=== PATIENT | female | born 1965 | race African-American/Black ===

== ENCOUNTER 2017-03-29 06:27 | Emergency (ER) | payer BC | END 2017-03-29 08:12 | disposition home or self-care (01) | LOC: ERS 06:27 | DX: J11.1 Influenza due to unidentified influenza virus with other respiratory manifestations (principal); E78.5 Hyperlipidemia, unspecified; I10 Essential (primary) hypertension; F17.210 Nicotine dependence, cigarettes, uncomplicated | CPT/HCPCS: 99406 ==

== ENCOUNTER 2019-03-25 13:14 | Outpatient (CLI) | payer BC ==
[2019-03-25 15:52] LABS: Anion Gap 14 mmol/L (10-20); BUN (Urea Nitrogen) 11 mg/dL (9.8-20.1); Calc. Creatinine Clearance 0 mL/min (70-130); Calcium 9.8 mg/dL (7.8-10.44); Carbon Dioxide 26 mmol/L (22-29); Chloride 100 mmol/L (98-107); Estimated GFR-MDRD 87; Glucose 87 mg/dL (70-105); Potassium 3.2 mmol/L (3.5-5.1); Sodium 137 mmol/L (136-145)
== END 2019-03-25 13:15 | disposition home or self-care (01) ==
LOC: LABBT 13:14
PROVIDERS: ATTEND Obstetrics & Gynecology
DX: Z01.818 Encounter for other preprocedural examination (principal)
CPT/HCPCS: 80048; 93005; 93010

== ENCOUNTER 2019-03-25 13:15 | Inpatient (IN) | payer BC, OTHER ==
[2019-03-25 13:42] VITALS: BMI 40.6
[2019-03-25 15:31] LABS: Hemoglobin 13.5 g/dL (12.0-16.0); Mean Corpuscular Hemoglobin 28.7 pg (27.0-31.0); Mean Platelet Volume 7.2 fL (7.4-10.4); Platelet Count 339 thou/uL (130-400); RBC Distribution Width 12.8 % (11.5-14.5); Red Blood Cell (RBC) Count 4.69 mill/uL (4.20-5.40); White Blood Cell (WBC) Count 6.2 thou/uL (4.8-10.8)
[2019-03-25 15:52] LABS: BHCG - Serum Negative (NEGATIVE); Pregs Control Background? CLEAR/WHITE (CLR/WHITE); Pregs Control Bar Appear? YES (CONTROL BAR)
--- NOTE | 2019-03-26 10:55 | HP ---
She is scheduled for surgery on 03/29/2019. HISTORY OF PRESENT ILLNESS: Ms. Jordan is a 53-year-old female, G3, P2, A1, with 2 spontaneous vaginal deliveries and BTL in the past, has been referred by Dr. Radha Chamorro for symptomatic 20-week uterine fibroids. She reports very heavy monthly menses, where she saturates a maxi pad in 30 minutes to an hour at times. She says this has also had documented anemia from the menorrhagia in the past with a hemoglobin of 8. She is taking iron therapy and has had improvement in her hemoglobin to 12. She has heavy flow days that compromised her work and is having to change the pads frequently, etc. She has used non-steroidals and Lysteda for the flow, but it would not much help. She reports missing a day, a month from her work due to the heavy flow. 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 PAST MEDICAL HISTORY: She has chronic hypertension. PAST SURGICAL HISTORY: Otherwise, she has had a past surgical history of tubal ligation. OBSTETRIC HISTORY: She is up to date with normal Pap smear testing in 05/2018. ALLERGIES: SHE HAS NO KNOWN DRUG ALLERGIES. SOCIAL HISTORY: Nonsmoker. No excessive alcohol use. PHYSICAL EXAMINATION: VITAL SIGNS: On exam, her blood pressure is 140/84. Height 5 feet 6 inches, weight 245 with BMI of 39. Respiratory rate 18, O2 saturation on room air is 99%, and pulse is 82. HEENT: Within normal limits. CHEST: Clear to auscultation. HEART: Regular rate and rhythm. S1 and S2, heart sounds. No murmurs, rubs, or gallops. ABDOMEN: Soft and nondistended. She has a palpable fundal uterine fibroid mass at the umbilicus, consistent with 20-week uterine size. The fundus appears mobile on exam. PELVIC: Vulva had no lesions. Vagina had no lesions. Cervix was pulled up high in the vaginal vault, but there was no evidence of any lesions on the cervix. As noted, the uterus was 20 weeks size, appears to be mobile from sidewall to sidewall on exam. ASSESSMENT: This is a 53-year-old female with large 20-week uterine fibroids. There were symptoms of menorrhagia with documented anemia in the past and pelvic discomfort and dysmenorrhea. She desired definitive surgical therapy. PLAN: For robotic total laparoscopic hysterectomy with bilateral salpingo-oophorectomy with ExCITE procedure versus a ISABEL-BSO. Risks and benefits of procedure, I have discussed in detail. She is set for surgery on 03/29. Job ID: [id number]
[2019-03-29] MEDS ORDERED: Famotidine/PF 20 mg/2ml Vial ONE (06:23)
[2019-03-29] MEDS ORDERED: CeleCOXIB 100 MG CAP ONE (06:23)
[2019-03-29] MEDS ORDERED: Gabapentin 300 MG CAP ONE (06:23)
[2019-03-29] MEDS ORDERED: Fentanyl 100 MCG/2 ML VIAL ONE ×2 (06:44→12:41)
[2019-03-29] MEDS ORDERED: HYDROmorphone 0.5 MG/0.5 ML SYRINGE ONE (06:45)
[2019-03-29] MEDS ORDERED: Midazolam HCl 2 mg/2 ml Vial ONE (07:11)
[2019-03-29] MEDS ORDERED: Bupivacaine PF 0.5% 30 ML VIAL ONE (07:53)
[2019-03-29] MEDS ORDERED: Lidocaine 1% PF 5 ML VIAL ONE (09:36)
[2019-03-29] MEDS ORDERED: Glycopyrrolate 0.2 MG/ML 5 ML SYRINGE ONE (09:36)
[2019-03-29] MEDS ORDERED: Ondansetron PF 4 MG/2 ML Vial ONE (09:36)
[2019-03-29] MEDS ORDERED: ePHEDrine/0.9% NaCl/PF SYRINGE 50 mg/10 ml ONE (09:36)
[2019-03-29] MEDS ORDERED: Rocuronium Bromide 10 MG/ML (10ML VIAL) ONE (09:36)
[2019-03-29] MEDS ORDERED: Dexamethasone 20 MG/5 ML VIAL ONE (09:36)
[2019-03-29] MEDS ORDERED: PROPOFOL 200 MG/20 ML VIAL ONE (09:36)
[2019-03-29] MEDS ORDERED: Morphine 4 MG/ML VIAL SLOW IVP PRN (14:04)
[2019-03-29] MEDS ORDERED: traMADol HCl 50 MG TAB PO PRN (14:04)
[2019-03-29] MEDS ORDERED: Ketorolac Tromethamine 30 MG/ML VIAL IVP SCH (14:04)
[2019-03-29] MEDS ORDERED: Estradiol 0.05mg/24 Hour Patch (Weekly) TD SCH (14:04)
[2019-03-29] MEDS ORDERED: Ondansetron PF 4 MG/2 ML Vial IVP PRN (14:04)
[2019-03-29] MEDS ORDERED: Bisacodyl 10 MG SUPP PR PRN (14:04)
[2019-03-29] MEDS ORDERED: Promethazine HCl 25 MG/ML VIAL IM PRN (14:04)
[2019-03-29] MEDS ORDERED: Acetaminophen 325 MG TAB PO PRN (14:04)
[2019-03-29] MEDS ORDERED: diphenhydrAMINE 25 MG CAP PO PRN (14:04)
--- NOTE | 2019-03-29 14:12 | OP ---
DATE OF PROCEDURE: 03/29/2019 PREOPERATIVE DIAGNOSES: 1. A 53-year-old female with large 20-week size uterine fibroids. 2. Menorrhagia and pelvic pain. POSTOPERATIVE DIAGNOSES: 1. A 53-year-old female with large 20-week size uterine fibroids. 2. Menorrhagia and pelvic pain. PROCEDURES PERFORMED: Robotic total laparoscopic hysterectomy with bilateral salpingo-oophorectomy and removal of tissue via the ExCITE procedure. URBAN GARDENING SPECIALIST SURGEON: Brianne Montenegro MD ANESTHESIA: General endotracheal. ESTIMATED BLOOD LOSS: 150 mL. COMPLICATIONS: None. COUNTS: Correct x2. ANTIBIOTICS: 2 g Ancef on-call to the OR. FINDINGS: 1. Very large uterus filling pelvis with multiple large fibroids noted. 2. Normal bilateral fallopian tubes and ovaries. 3. Clear urine present in Zhang catheter and bladder was watertight to fluid distention postprocedure. 4. Bilateral ureteral peristalsis visualized postprocedure. DISPOSITION: To recovery room, stable. DESCRIPTION OF PROCEDURE: The patient previously received informed consent in regard to surgery. She was taken back to the operating room, where she received a general endotracheal anesthetic agent without complications. She was placed in dorsal lithotomy position with the use of Juvenal stirrups and prepped and draped in usual sterile fashion. Zhang catheter was placed at this time. A side-arm speculum placed in the vagina. Anterior lip of the cervix was grasped with a single-tooth tenaculum. The uterus sounded to 14 cm. A size 12-cm DRE uterine manipulator was placed with a 4.0-cm cervical cup. Tenaculum and speculum were removed. Attention was then turned to the abdomen, where approximately a 2.5 cm supraumbilical incision was made above the umbilicus. This was carried down the fascia and then the Veress needle was entered into the peritoneal cavity. The abdomen was insufflated with the patient's pressure of 15 approximately 4.5 L of carbon dioxide gas. The Veress needle was removed and a size 12 mm trocar was placed through the incision. The robotic trocar was introduced through the trocar sleeve confirming proper entry. Additional bilateral lower quadrant 8-mm robotic trocars were placed under laparoscopic guidance along with an 11-mm right upper quadrant life science research assistant port. We then proceeded to place the small GelPOINT incision system in the supraumbilical incision. A fascial defect had been extended to 2.5 cm. Once the GelPOINT was placed, the 12-mm trocar was placed through the GelPOINT and then this laparoscope was introduced into the abdomen. The patient was placed into Trendelenburg position and the robot was docked in the usual fashion. I then proceeded to carry out the surgery from the operative console while my assistants remained at the bedside. The uterus was noted as large. It was moved from side to side and was able to identify the left infundibulopelvic ligament. This was coagulated with bipolar fenestrated cautery and transected with monopolar scissors. Once we deviated the uterus with assistance from my assistants, we were able to deviate the uterus over to away from the sidewall and then continued coagulation of broad ligament until the left round ligament was reached. It was coagulated and transected and the anterior leaf of the broad ligament was entered. Peritoneum was dissected medially and laterally, developing the planes and skeletonizing the left uterine vessels. We then created the vesicouterine peritoneum, where we reflected the bladder flap in a layering technique. This was then carried on the right side of the uterus. Again, the right IP ligament was identified, coagulated, and transected. Serial coagulation of broad ligament hugging close to the uterus was carried out until the right round ligament was reached. It was coagulated and transected again the anterior leaf of the broad ligament was entered and the vesicouterine peritoneum was dissected in a layering technique and intermittently we distended the bladder to ascertain its position due to the redundancy of the peritoneum in this area. The bladder remained intact, watertight and continued dissecting this as we had a better visualization on this side and we were able to dissect the vesicouterine peritoneum down and the cervical tissue was noted. The bladder was brought down past the cervical vaginal angles. The right uterine vessels again were skeletonized and coagulated in the internal cervical os region. Once we had access to the anterior clearance of the bladder, then further dissection of the left uterine vessels and skeletonization were carried out and these again were coagulated in the internal cervical os region with the bipolar fenestrated cautery. Once blood supply to the uterine vessels had been secured in the internal cervical os region, then we proceeded to carry out the anterior colpotomy. This started from the 12 o'clock to 3 o'clock and 12 o'clock to 9 o'clock position. Coagulation of the vessels at 3 o'clock and 9 o'clock position were again carried out to confirm hemostasis. The bulky nature of the uterus made it more difficult to access the posterior colpotomy sites. We deviated the uterus over the each sidewall. Then, I switched out to a 30-degree scope, which enabled the better angle of visualization to complete the posterior colpotomy and approaching this from the side. We continued to cut along the cervical cup and coagulated as indicated with the bipolar fenestrated cautery. We switched out the sides with the monopolar scissors on the right and the left side, which made a better access to the angle needed to complete the colpotomy. Once the colpotomy was completed, the uterus was taken off the OnKure uterine manipulator and delivered in the upper abdomen. The needle skip load driver was then switched out the monopolar scissors and then we closed the vaginal cuff starting at the right angle to the left angle back to the right angle with a Stratafix suture. Hemostasis was confirmed. Pelvis again was irrigated and suctioned. Ir any areas of oozing were made hemostatic with bipolar fenestrated cautery and Tisseel was also placed. The robot scope was undocked and the accordion folded Aces bag was placed in the abdomen. Then, we redocked the camera scope. Once we brought the bag down in the pelvis, then the stay sutures were cut, opening the bag in the pelvis. Then with my life science research assistant, we were able to place the large uterine specimen in the bag and then the pull string was closed to secure it. Then, the drawstring was then grasped by my life science research assistant through the GelPOINT with the [place] and then brought up through the GelPOINT. The robot was then undocked. We then delivered the Aces bag with the uterus inside in the ovaries and brought this up through the 2.5 cm fascial defect supraumbilical through the GelPOINT. The GelPOINT retractor was then placed inside the Aces bag to protect the Aces bag during the morcellation process. The specimen was then morcellated in usual technique with the C incision continually grabbing the tissue with Marybeth thyroid clamps, C cutting it and removing it. The specimen was roughly 1200 g weight after completion of removal of the morcellation. The Aces bag was intact. The GelPOINT retractor was removed. The fascial defect was then closed with running 0 Vicryl suture in the supraumbilical region with good approximation of fascia confirmed. The subcutaneous tissue was irrigated. It was closed with 4-0 subcuticular stitches on all the trocar sites along with Dermabond. The patient's sponge stick was checked of the vagina. Hemostasis of the vaginal vault was confirmed. Clear urine was draining from the Zhang catheter. The patient was awakened and transferred to the recovery room in stable condition. Job ID: [id number]
[2019-03-29] MEDS ORDERED: Ketorolac Tromethamine 30 MG/ML VIAL ONE (14:48)
[2019-03-29] MEDS: Lactated Ringer's 1,000 ML IV SCH ×2 (14:54→16:39)
[2019-03-29] MEDS ORDERED: Sodium Chloride 0.9% 10 ML ONE (20:37)
[2019-03-29] MEDS: traMADol HCl 50 MG TAB PO PRN (20:38)
[2019-03-29] MEDS: Ketorolac Tromethamine 30 MG/ML VIAL IVP SCH (20:43)
[2019-03-29] MEDS ORDERED: Atorvastatin Calcium 40 MG TAB PO SCH (21:00)
[2019-03-30] MEDS: Ketorolac Tromethamine 30 MG/ML VIAL IVP SCH ×2 (03:19→09:04)
[2019-03-30] MEDS: traMADol HCl 50 MG TAB PO PRN (05:03)
[2019-03-30 06:11] LABS: Hemoglobin 8.2 g/dL (12.0-16.0); Mean Corpuscular HGB CONC 33.3 g/dL (32.0-36.0); Mean Corpuscular Hemoglobin 28.9 pg (27.0-31.0); Mean Corpuscular Volume 86.8 fL (78.0-98.0); Mean Platelet Volume 7.2 fL (7.4-10.4); Platelet Count 260 thou/uL (130-400); RBC Distribution Width 12.9 % (11.5-14.5); Red Blood Cell (RBC) Count 2.84 mill/uL (4.20-5.40); White Blood Cell (WBC) Count 11.6 thou/uL (4.8-10.8)
[2019-03-30] MEDS: Lactated Ringer's 1,000 ML IV SCH (06:53)
--- NOTE | 2019-03-30 08:18 | PDOC.EVN ---
Event Note - Event Note Event Note: Tolerating diet. Ambulating. Voiding. Good pain control. O:122/52 P85 u/o >1000ml Abdomen soft/non distended , trochar sites clean and dry. HCT 24.6% A/P Post op day1 from robotic tlh/bso with excite for large uterine fibroids...Doing well. Anticipate discharge today.
[2019-03-30 08:28] VITALS: BP 116/57; TEMP 98.1
[2019-03-30] MEDS ORDERED: Hydrochlorothiazide 25 MG TAB PO SCH (09:00)
[2019-03-30] MEDS ORDERED: Amlodipine 5 MG TAB PO SCH (09:00)
[2019-03-30] MEDS ORDERED: Losartan 25 MG TAB PO SCH (09:00)
[2019-03-30] MEDS ORDERED: Nicotine 14 MG PATCH TOP SCH (09:00)
--- NOTE | 2019-03-31 04:33 | DIS ---
DATE OF ADMISSION: 03/29/2019 DATE OF DISCHARGE: 03/30/2019 DIAGNOSES: 1. Large uterine fibroids. 2. History of menorrhagia due to uterine fibroids and pelvic pain. PROCEDURES PERFORMED: Robotic total laparoscopic hysterectomy with bilateral salpingo-oophorectomy and removal of specimen via the ExCITE procedure. SUMMARY OF HOSPITAL COURSE: Ms. Jordan is a 53-year-old female, who had large 22-week size uterine fibroids with approximate weight of 1300 g removed via robotic total laparoscopic hysterectomy and via BSO with ExCITE on 03/29. Postoperatively, the patient has done well. Vital signs remained stable. She had a postoperative blood-loss anemia and hematocrit 24.6%, but it was asymptomatic with normal vital signs and no orthostatic symptoms. She was ambulating, voiding, and tolerating her diet the evening of postop day 0. She was discharged in the morning of postop day #1 with discharge medications of tramadol 50 mg q.6 hours p.r.n. pain, [id number] ibuprofen as directed, and instructed to restart her daily iron therapy for next month. Pathology is pending at time of this dictation, and she has a followup in 2 and 6 weeks postop. Job ID: [id number]
[2019-04-03] MEDS ORDERED: Ibuprofen 800 MG TAB PO SCH (21:00)
== END 2019-03-30 11:15 | disposition home or self-care (01) | DRG 743 ==
LOC: SURG A 03-29 05:33 → 3SE 03-29 13:58
PROVIDERS: ADMIT Obstetrics & Gynecology; ATTEND Obstetrics & Gynecology
PROC: 0UT94ZZ Resection of Uterus, Percutaneous Endoscopic Approach (ICD-10-PCS; principal; 2019-03-29)
PROC: 0UT74ZZ Resection of Bilateral Fallopian Tubes, Percutaneous Endoscopic Approach (ICD-10-PCS; 2019-03-29)
PROC: 0UT24ZZ Resection of Bilateral Ovaries, Percutaneous Endoscopic Approach (ICD-10-PCS; 2019-03-29)
DX: D25.9 Leiomyoma of uterus, unspecified (principal); N92.0 Excessive and frequent menstruation with regular cycle; I10 Essential (primary) hypertension; R19.2 Visible peristalsis; N94.6 Dysmenorrhea, unspecified
CPT/HCPCS: 36415; 84703; 85027; 86850; 86900; 86901; 88307; J0131; J0690; J1100; J1170; J1885; J2001; J2250; J2405; J2704; J3010; S0020; S0028

== ENCOUNTER 2019-04-13 01:54 | Emergency (ER) | payer BC ==
[2019-04-13 02:18] LABS: Bacteria/HPF 1+ HPF (None Seen); Bilirubin Negative (Negative); Blood, Urine 2+ (Negative); Clarity Turbid (Clear); Glucose, Urine (Dipstick) Normal (Negative); Leukocyte 500 Leu/uL (Negative); Nitrite Negative (Negative); Protein, Urine (Dipstick) 20 mg/dL (Neg-Trace); RBC/HPF 21-50 HPF (0-3); WBC/HPF Greater than 50 HPF (0-3)
== END 2019-04-13 03:08 | disposition home or self-care (01) ==
LOC: ERS 01:54
DX: N39.0 Urinary tract infection, site not specified (principal); E78.5 Hyperlipidemia, unspecified; E78.00 Pure hypercholesterolemia, unspecified; I10 Essential (primary) hypertension; F17.210 Nicotine dependence, cigarettes, uncomplicated
CPT/HCPCS: 81003; 81015

== ENCOUNTER 2019-04-19 10:34 | Outpatient (CLI) | payer BC ==
--- NOTE | 2019-04-19 13:21 | CT ---
CT ABDOMEN AND PELVIS PERFORMED WITH AND WITHOUT IV CONTRAST ENHANCEMENT WITH CT CYSTOGRAM: Date: 04/19/2019 HISTORY: Hysterectomy on 03/29/2019. Complains of frequent and uncontrolled urination for past week. FINDINGS: Lung bases show some ground-glass opacity. The liver, spleen, pancreas, and gallbladder regions all appear unremarkable. Right and left adrenal glands are normal. Punctate nonobstructing upper pole left renal calculus is s een. No obstruction. No significant periaortic or mesenteric adenopathy. CT of pelvis was performed with contrast enhancement. Postoperative changes related to history of hys terectomy are noted with fat stranding along the right side of the abdomen. There is a fluid density collection which is along the posterior border of the right anterior abdominal wall measuring in the 5.0 cm range. This has somewhat higher attenuation within it and probably represents a hematoma. Ther e is no air to suggest that this represents an abscess. The appendix is normal. Zhang catheter is present within the bladder. There is contrast seen within the vagina and some air p resent within the vagina. I do not see a definite fistulous connection. This could be related to some reflux back into the vagina, but the possibility of a fistulous connection to the bladder is not exc luded. IMPRESSION: 1. Postoperative changes of the pelvis. There is contrast present within the region of the vagina an d some air, although I do not see a definite fistulous connection to the bladder, I cannot exclude th is as representing a fistula given this appearance and the history. 2. Complex cystic lesion in right lower quadrant which appears to represent a postop area of lysing hematoma. 3. Punctae nonobstructing left renal calculus. POS: NEEL
[2019-04-19] MEDS ORDERED: Iopamidol 370 76% 100 ML VIAL ONE (15:54)
[2019-04-19] MEDS ORDERED: Iopamidol 370 76% 50 ML VIAL FS ONE (15:54)
== END 2019-04-19 10:35 | disposition home or self-care (01) ==
LOC: CT 10:34
PROVIDERS: ATTEND Obstetrics & Gynecology
DX: O75.4 Other complications of obstetric surgery and procedures (principal); R87.9 Unspecified abnormal finding in specimens from female genital organs; N20.0 Calculus of kidney; R19.8 Other specified symptoms and signs involving the digestive system and abdomen; Z98.890 Other specified postprocedural states
CPT/HCPCS: 74178; Q9967

== ENCOUNTER 2019-04-20 06:24 | Day surgery (SDC) | payer BC, OTHER ==
[2019-04-19 15:16] VITALS: BMI 39.2
[2019-04-20] MEDS ORDERED: Levofloxacin 500 mg/D5W 100 ml Premix Bag ONE (07:05)
[2019-04-20] MEDS ORDERED: Iothalamate Meglumine 60% 50 ML VIAL FS ONE (08:22)
[2019-04-20] MEDS ORDERED: Fentanyl 100 MCG/2 ML VIAL ONE ×2 (08:30→09:27)
[2019-04-20] MEDS ORDERED: Meperidine HCl/PF 25 MG/ML VIAL ONE (09:29)
--- NOTE | 2019-04-20 09:30 | RAD ---
XR IVP Retrograde History: Retrograde pyelography Comparison: CT prior day Findings: 3 images from the cystoscopy suite were obtained. No dilatation of the renal collecting sys tems. Right ureteral stent has been placed. After the instillation contrast there previously posterior extravasation of contrast within the vagina. Impression: Fluoroscopy for procedure purposes.
[2019-04-20] MEDS ORDERED: PROPOFOL 200 MG/20 ML VIAL ONE (09:32)
[2019-04-20] MEDS ORDERED: Lidocaine 1% PF 5 ML VIAL ONE (09:32)
[2019-04-20] MEDS ORDERED: Ondansetron PF 4 MG/2 ML Vial ONE (09:32)
[2019-04-20] MEDS ORDERED: Ketorolac Tromethamine 30 MG/ML VIAL ONE (09:39)
[2019-04-20] MEDS ORDERED: Phenazopyridine HCl 97.5 MG TABLET ONE ×2 (10:00)
[2019-04-20] MEDS ORDERED: Oxybutynin 5 MG TAB ONE (10:00)
[2019-04-20] MEDS ORDERED: HYDROcodone/Acetaminophen 5/325 mg Tablet ONE (10:42)
--- NOTE | 2019-04-20 19:09 | OP ---
DATE OF PROCEDURE: 04/20/2019 PREOPERATIVE DIAGNOSIS: vesicovaginal fistula. 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 PROCEDURES PERFORMED: Cystoscopy, exam under anesthesia, bilateral retrograde pyelogram, right 6 x 26 double-J ureteral stent placement. ANESTHESIA: General. COMPLICATIONS: None. SPECIMEN: None. BLOOD LOSS: None. DESCRIPTION OF PROCEDURE: After informed consent, the patient was taken to the operating room, transferred to the table on her own power. Anesthesia was established. A time-out was performed, showing the correct patient, site, and procedure. Preoperative antibiotics were administered. She was prepped and draped in the lithotomy position. I began by inserting the 22-Amharic rigid cystoscope. The bladder was systematically examined with both 30 degree and 70 degree lenses, noting no mucosal abnormalities. The left ureteral orifice was normal in appearance and effluxing clear urine. The right ureteral orifice was normal in appearance, but did not appear to be effluxing. I attempted to pass a Pollack catheter into the right ureter, however, was unable to pass the catheter more than a cm or so. I performed a gentle retrograde at this point, noting contrast extravasating into the retroperitoneum. I just placed a wire through the Pollack at this point, however, under fluoroscopy, the wire was droven to retroperitoneum. On the second attempt with a wire, I was able to pass it through the ureter up to the level of the renal pelvis, Pollack catheter was advanced over this, and then a retrograde pyelogram performed showing good filling of the right renal pelvis without filling defects. The wire was replaced and a 6 x 26 double-J ureteral stent placed over the wire with a curl in the kidney and curl in the bladder under fluoroscopic guidance and direct visualization respectively. I then performed a left retrograde pyelogram showing good filling of the left ureter without extravasation, hydronephrosis, or filling defects. I then performed a pelvic exam under anesthesia with a speculum and was unable to visualize or palpate the stent at the vaginal cuff. At this point, the procedure was complete. The patient was awoken from anesthesia, transferred back to her hospital bed, and taken to PACU in stable condition, where she will discharge home upon recovery. Job ID: [id number] [facility]
== END 2019-04-20 10:50 | disposition home or self-care (01) ==
LOC: SDC 06:24
PROVIDERS: ATTEND Urology
PROC: 0T768DZ Dilation of Right Ureter with Intraluminal Device, Via Natural or Artificial Opening Endoscopic (ICD-10-PCS; principal; 2019-04-20)
DX: N82.0 Vesicovaginal fistula (principal); F17.200 Nicotine dependence, unspecified, uncomplicated; Z79.899 Other long term (current) drug therapy
CPT/HCPCS: 74420; C1758; C1769; J1885; J1956; J2001; J2175; J2405; J2704; J3010

== ENCOUNTER 2019-06-16 07:48 | Outpatient (CLI) | payer BC, OTHER ==
[2019-06-16 16:58] LABS: Hemoglobin 11.3 g/dL (12.0-16.0); Mean Corpuscular HGB CONC 31.6 g/dL (32.0-36.0); Mean Corpuscular Hemoglobin 25.3 pg (27.0-31.0); Mean Corpuscular Volume 79.9 fL (78.0-98.0); Mean Platelet Volume 8.1 fL (7.4-10.4); Platelet Count 419 thou/uL (130-400); RBC Distribution Width 17.2 % (11.5-14.5); Red Blood Cell (RBC) Count 4.47 mill/uL (4.20-5.40); White Blood Cell (WBC) Count 7.9 thou/uL (4.8-10.8)
[2019-06-16 17:16] LABS: Bilirubin Negative (Negative); Blood, Urine 2+ (Negative); Clarity Turbid (Clear); Glucose, Urine (Dipstick) Normal (Negative); Leukocyte 500 Leu/uL (Negative); Nitrite Negative (Negative); Protein, Urine (Dipstick) 30 mg/dL (Neg-Trace); RBC/HPF Greater than 50 HPF (0-3); Urobilinogen Normal mg/dL (Less than 2); WBC/HPF Greater than 50 HPF (0-3)
[2019-06-16 17:20] LABS: Bacteria/HPF 1+ HPF (None Seen)
[2019-06-16 17:30] LABS: Anion Gap 13 mmol/L (10-20); BUN (Urea Nitrogen) 9 mg/dL (9.8-20.1); Calc. Creatinine Clearance 0 mL/min (70-130); Calcium 9.7 mg/dL (7.8-10.44); Carbon Dioxide 29 mmol/L (22-29); Chloride 101 mmol/L (98-107); Estimated GFR-MDRD Greater than 90; Glucose 98 mg/dL (70-105); Potassium 3.2 mmol/L (3.5-5.1); Sodium 140 mmol/L (136-145)
== END 2019-06-16 07:49 | disposition home or self-care (01) ==
LOC: LABBT 07:48
PROVIDERS: ATTEND Urology
DX: Z01.818 Encounter for other preprocedural examination (principal); N82.1 Other female urinary-genital tract fistulae
CPT/HCPCS: 80048; 81001; 85027; 93005; 93010

== ENCOUNTER 2019-11-16 13:47 | Outpatient (CLI) | payer BC ==
--- NOTE | 2019-11-16 14:17 | ULT ---
EXAM: BILATERAL RENAL ULTRASOUND COMPLETE: 11/16/19 HISTORY: Ureterovaginal fistula. COMPARISON: CT abdomen and pelvis 04/19/19. FINDINGS: Right kidney measures 12.2 x 5.5 x 5.7 cm. Left kidney measures 12.5 x 6.6 x 5.8 cm. There is no renal hydronephrosis. The urinary bladder appears unremarkable. No perinephric process. IMPRESSION: Unremarkable bilateral renal ultrasound. POS: OFF
== END 2019-11-16 13:48 | disposition home or self-care (01) ==
LOC: BICULT 13:47
PROVIDERS: ATTEND Urology
DX: N82.1 Other female urinary-genital tract fistulae (principal)
CPT/HCPCS: 76770

== ENCOUNTER 2020-12-20 13:43 | Outpatient (CLI) | payer BC, OTHER | END 2020-12-20 13:44 | disposition home or self-care (01) | LOC: BICMAMMO 13:43 | PROVIDERS: ATTEND Family Medicine | DX: Z12.31 Encounter for screening mammogram for malignant neoplasm of breast (principal); Z80.3 Family history of malignant neoplasm of breast | CPT/HCPCS: 77063; 77067 ==

== ENCOUNTER 2024-11-06 10:23 | Emergency (ER) | payer BC ==
[2024-11-06] MEDS ORDERED: Ketorolac Tromethamine 30 MG (1 mL) VIAL ONE (11:34)
== END 2024-11-06 13:59 | disposition home or self-care (01) ==
LOC: ERS 10:23
DX: M53.3 Sacrococcygeal disorders, not elsewhere classified (principal); E11.9 Type 2 diabetes mellitus without complications; E78.00 Pure hypercholesterolemia, unspecified; I10 Essential (primary) hypertension; Z79.899 Other long term (current) drug therapy; Z87.891 Personal history of nicotine dependence
CPT/HCPCS: 72100; 72202; 96372; 99283; J1885